=== PATIENT | male | born 1985 | race Hispanic/Latino ===

== ENCOUNTER 2018-05-13 02:47 | Emergency (ER) | payer OTHER ==
[2018-05-13 03:01] VITALS: O2SAT 98
[2018-05-13] MEDS ORDERED: Dexamethasone 10 MG in Sodium Chloride 0.9% 50 ML IVPB STA (04:25)
[2018-05-13 04:58] LABS: BASO % 0.2 % (0.0-2.0); EOS % 0.4 % (0.0-4.0); LYMPH # 1.4 K/uL (1.0-4.3); LYMPH % 18.8 % (20.0-40.0); MEAN CELL VOLUME 95.4 fl (80.0-94.0); MEAN CORPUSCULAR HEMOGLOBIN 32.9 pg (27.0-31.0); MEAN CORPUSCULAR HGB CONC 34.4 g/dL (33.0-37.0); MEAN PLATELET VOLUME 8.1 fl (7.2-11.7); MONO # 0.5 K/uL (0.0-0.8); MONO % 6.2 % (0.0-10.0); NEUT # 5.7 K/uL (1.8-7.0); NEUT % 74.4 % (50.0-75.0); RBC 4.26 Mil/uL (4.40-5.90); RED CELL DISTRIBUTION WIDTH 13.8 % (11.5-14.5); WHITE BLOOD COUNT 7.7 K/uL (4.8-10.8)
[2018-05-13] MEDS ORDERED: CEFTRIAXONE IVPB STA (04:58)
[2018-05-13] MEDS ORDERED: PED IVPB STA (04:58)
[2018-05-13 05:09] LABS: ALB/GLOB RATIO 1.4 (1.0-2.1); ALBUMIN 4.4 g/dL (3.5-5.0); ALT/SGPT 26 U/L (21-72); AST/SGOT 17 U/L (17-59); BLOOD UREA NITROGEN 20 mg/dl (9-20); CALCIUM 9.7 mg/dL (8.4-10.2); GFR NON-AFRICAN AMERICAN > 60
[2018-05-13] MEDS ORDERED: cefTRIAXone (Rocephin) 250 mg Inj IM STA (05:25)
[2018-05-13] MEDS ORDERED: cefTRIAXone (Rocephin) 250 mg Inj ONE (05:31)
--- NOTE | 2018-05-13 05:36 | ED PDOC ---
HPI: CCC, URI, Sore Throat Time Seen by Provider: 05/13/18 03:22 Chief Complaint (Nursing): Cough, Cold, Congestion History Per: Patient Additional Complaint(s): Pt. states for the past 6 weeks he's had a sore throat associated with mild nasal congestion. Pt. is concerned he may have contracted gonorrohea/chlamydia via oral sex. States he did give oral sex just prior to the onset of symptoms. Denies fever, rash, cough, abdominal pain, SOB, throat swelling. Pt. states he does have a hx of urethritis. Denies dysuria, penile discharge. Past Medical History Reviewed: Historical Data, Nursing Documentation, Vital Signs Vital Signs: Last Vital Signs Temp 97.6 F 05/13/18 02:58 Pulse 67 05/13/18 02:58 Resp 15 05/13/18 02:58 BP 123/80 05/13/18 02:58 Pulse Ox 98 05/13/18 02:58 - Medical History PMH: Bipolar Disorder - Family History Family History: States: No Known Family Hx - Allergies Allergies/Adverse Reactions: Allergies Allergy/AdvReac Type Severity Reaction Status Date / Time No Known Allergies Allergy Verified 05/13/18 03:01 Review of Systems ROS Statement: Except As Marked, All Systems Reviewed And Found Negative ENT: Positive for: Throat Pain Physical Exam - Physical Exam Appears: Positive for: Well, Non-toxic, No Acute Distress Skin: Positive for: Normal Color, Warm. Negative for: Rash Eye Exam: Positive for: Normal appearance ENT: Positive for: TM Is/Are (non-erythematous, non-bulging b/l), Pharyngeal Erythema. Negative for: Tonsillar Exudate, Tonsillar Swelling Neck: Positive for: Normal, Painless ROM Gastrointestinal/Abdominal: Positive for: Normal Exam, Soft. Negative for: Tenderness, Organomegaly Neurologic/Psych: Positive for: Alert, Oriented (x3) - Laboratory Results Result Diagrams: 05/13/18 04:53 05/13/18 04:53 - ECG O2 Sat by Pulse Oximetry: 98 - Progress ED Course And Treament: Labs, decadron 10mg IV ordered. Pt. requesting to be treated empirically for GC/Chlamydia. Disposition - Clinical Impression Clinical Impression: Odynophagia - Patient ED Disposition Is Patient to be Admitted: No - Disposition Referrals: [facility] Krysta Dhruv [Outside] Disposition: Routine/Home Disposition Time: 05:28 Condition: STABLE Additional Instructions: HÉCTOR OSCAR, thank you for letting us take care of you today. Your provider was Rad Lugo MD and you were treated for CONGESTION. The emergency medical care you received today was directed at your acute symptoms. If you were prescribed any medication, please fill it and take as directed. It may take several days for your symptoms to resolve. Return to the Emergency Department if your symptoms worsen, do not improve, or if you have any other problems. Please contact your doctor or call one of the physicians/clinics you have been referred to that are listed on the Patient Visit Information form that is included in your discharge packet. Bring any paperwork you were given at discharge with you along with any medications you are taking to your follow up v isit. Our treatment cannot replace ongoing medical care by a primary care provider outside of the emergency department. Thank you for allowing the [facility] team to be part of your care today. If you had an X-Ray or CT scan: A Radiologist will review the ED reading if any change in treatment is needed we will contact you. If you had a blood, urine, or wound culture: It will take several days for the results, if any change in treatment is needed we will contact you. If you had an STI test: It will take 48 hours for the results. Please call after 1 week if you have not heard back. Instructions: Sore Throat, Adult (DC) Forms: [employer] (Turkish)
[2018-05-13 06:18] VITALS: BP 113/64; PULSE 71; RESP 16; TEMP 98
== END 2018-05-13 06:17 | disposition home or self-care (01) ==
LOC: H.ER 02:47
DX: R10.13 Epigastric pain (principal); F31.9 Bipolar disorder, unspecified; N34.2 Other urethritis
CPT/HCPCS: 80053; 85025; 86308; 86664; 86665; 87040; 87070; 87430; 87491; 87591; 96372; 96374; 99283; J0696; J1100

== ENCOUNTER 2018-05-18 07:54 | Inpatient (IN) | payer OTHER ==
[2018-05-18 08:08] VITALS: O2SAT 98
--- NOTE | 2018-05-18 09:22 | ED PDOC ---
HPI: Psych/Substance Abuse Time Seen by Provider: 05/18/18 08:31 Chief Complaint (Nursing): Psychiatric Evaluation Chief Complaint (Provider): Psychiatric Evaluation History Per: Patient History/Exam Limitations: no limitations Suicide/Self Injury Attempted (Context): Other (Fall of a bridge) Associated Symptoms: Depression, Suicidal Thoughts, Suicidal Plan Additional Complaint(s): 32 years old male with history of bipolar disorder brought to ER by police for psychiatric evaluation after an anonymous person called PD for knowing that patient was planning on suicide. Patient admits having suicidal thoughts for about 6 weeks and has been planing for the past three days to go to [place] and throw himself off a bridge. He reports he has been searching and found that [place] bridges do not have guards, which is why he wanted to go there. Patient state his life has been in a difficult situation that made him suicidal. He denies any headaches, pain, chills or fever, cough or previous attempt to suicide. PMD: Sanchez Lowe Past Medical History Reviewed: Historical Data, Nursing Documentation, Vital Signs Vital Signs: Last Vital Signs Temp 98.1 F 05/18/18 08:04 Pulse 71 05/18/18 08:04 Resp 16 05/18/18 08:04 BP 131/76 05/18/18 08:04 Pulse Ox 98 05/18/18 08:04 - Medical History PMH: Bipolar Disorder - Surgical History Surgical History: No Surg Hx - Family History Family History: States: Unknown Family Hx - Social History Current smoker - smoking cessation education provided: No Alcohol: None Drugs: Denies - Home Medications Home Medications: Ambulatory Orders Medication Instructions Recorded Lurasidone HCl [Latuda] 120 mg PO DAILY 05/18/18 Vilazodone HCl [Viibryd] 20 mg PO DAILY 05/18/18 - Allergies Allergies/Adverse Reactions: Allergies Allergy/AdvReac Type Severity Reaction Status Date / Time No Known Allergies Allergy Verified 05/13/18 03:01 Review of Systems ROS Statement: Except As Marked, All Systems Reviewed And Found Negative Constitutional: Negative for: Fever, Chills Respiratory: Negative for: Cough Neurological: Negative for: Headache Psych: Positive for: Suicidal ideation (and plan) Physical Exam - Reviewed Nursing Documentation Reviewed: Yes Vital Signs Reviewed: Yes - Physical Exam Appears: Positive for: Non-toxic, No Acute Distress Head Exam: Positive for: ATRAUMATIC, NORMOCEPHALIC Skin: Positive for: Normal Color, Warm, Dry Eye Exam: Positive for: Normal appearance, EOMI, PERRL ENT: Positive for: Normal ENT Inspection Neck: Positive for: Supple Cardiovascular/Chest: Positive for: Regular Rate, Rhythm. Negative for: Murmur Respiratory: Positive for: Normal Breath Sounds. Negative for: Respiratory Distress Gastrointestinal/Abdominal: Positive for: Normal Exam, Soft Extremity: Positive for: Normal ROM. Negative for: Pedal Edema, Swelling Neurologic/Psych: Positive for: Alert, Oriented (x3) - Laboratory Results Result Diagrams: 05/18/18 09:13 05/18/18 09:13 - ECG O2 Sat by Pulse Oximetry: 98 (RA) Pulse Ox Interpretation: Normal Medical Decision Making Medical Decision Making: Time: 847 Initial Impression: Initial Plan: --Alcohol serum --CMP --Urine drug screen --Crisis evaluation --CBC --1:1 Observation --Urinalysis ----- Scribe Attestation: Documented by Piper Norris, acting as a scribe for Hannah Phipps MD. Provider Scribe Attestation: All medical record entries made by the Scribe were at my direction and perso callum dictated by me. I have reviewed the chart and agree that the record accurately reflects my personal performance of the history, physical exam, medical decision making, and the department course for this patient. I have also personally directed, reviewed, and agree with the discharge instructions and disposition. Disposition - Clinical Impression Clinical Impression: Suicidal behavior - Patient ED Disposition Is Patient to be Admitted: Yes Doctor Will See Patient In The: Hospital - Disposition Disposition: Transfer of Care Disposition Time: 10:19 Condition: GUARDED Forms: [employer] (Scottish) - Pt Status Changed To: Hospital Disposition Of: Inpatient - Admit Certification Admit to Inpatient:: After my assessment, the patient will require hospitalization for at least two midnights. This is because of the severity of symptoms shown, intensity of services needed, and/or the medical risk in this patient being treated as an outpatient. - POA Present On Arrival: None
[2018-05-18 09:42] LABS: BASO % 0.2 % (0.0-2.0); EOS % 0.3 % (0.0-4.0); HEMOGLOBIN 13.5 g/dL (12.0-18.0); LYMPH % 20.9 % (20.0-40.0); MEAN CELL VOLUME 95.8 fl (80.0-94.0); MEAN CORPUSCULAR HEMOGLOBIN 32.3 pg (27.0-31.0); MEAN CORPUSCULAR HGB CONC 33.7 g/dL (33.0-37.0); MEAN PLATELET VOLUME 8.8 fl (7.2-11.7); MONO # 0.2 K/uL (0.0-0.8); NEUT # 3.6 K/uL (1.8-7.0); NEUT % 73.6 % (50.0-75.0); NRBC % 0.1 % (0.0-0.0); RBC 4.16 Mil/uL (4.40-5.90); RED CELL DISTRIBUTION WIDTH 13.9 % (11.5-14.5); WHITE BLOOD COUNT 4.9 K/uL (4.8-10.8)
[2018-05-18 09:59] LABS: URINE BACTERIA RARE (<OCC); URINE BILIRUBIN NEGATIVE (NEGATIVE); URINE BLOOD NEGATIVE (NEGATIVE); URINE CLARITY CLOUDY (Clear); URINE COLOR YELLOW (YELLOW); URINE GLUCOSE (UA) NEG (Normal); URINE LEUKOCYTE ESTERASE NEG Leu/uL (Negative); URINE PROTEIN NEGATIVE (NEGATIVE)
[2018-05-18 09:59] LABS: ALB/GLOB RATIO 1.3 (1.0-2.1); ALT/SGPT 26 U/L (21-72); AST/SGOT 16 U/L (17-59); BLOOD UREA NITROGEN 24 mg/dl (9-20); CALCIUM 9.7 mg/dL (8.4-10.2); GFR NON-AFRICAN AMERICAN > 60
[2018-05-18 10:04] LABS: BARBITURATES, UR NEGATIVE (NEGATIVE); BENZODIAZEPINES, UR NEGATIVE (NEGATIVE); OPIATES, UR NEGATIVE (NEGATIVE); PHENCYCLIDINE, UR NEGATIVE (NEGATIVE)
[2018-05-18] MEDS ORDERED: Alum-Mag Hydrox-Simethicone Susp (30 mL) PO PRN (14:50)
[2018-05-18] MEDS ORDERED: DiphenhydrAMINE 50 mg/ml Inj IM PRN (14:50)
--- NOTE | 2018-05-18 15:17 | PCM.BM ---
Addendum entered and electronically signed by Nikki Talavera MSW 05/28/18 15:23: Treatment Plan Review - Problem Suicidal Ideation Time Initiated: 15:10 Hopelessness/Helplessness Time Initiated: 15:26 - Discharge / Continuing Care Discharge to:: Home Behavioral Health Services: [facility] hospital (Patient attended tx team this morning to discuss progress on 3NP and discharge. Pt. presented with flat affect and fair eye contact. Pt. remained guarded but was cooperative and in good behavioral control. Insight into illness and need for tx remains limited. Pt. superficially receptive to feedback regarding effective coping skills and goal setting. Pt. denied SI/HI and was able to contract for safety. Pt. strongly encouraged to complete tx with [facility] as recommended by tx team. As per Dr. Rothman, pt. can contact Dr. Angel and Horace Aceves upon discharge to inquire if he is able to continue services with outpatient providers if he so chooses. Pt. expressed understanding of the above. ) Original Note: <Yomi Calzada - Last Filed: 05/18/18 15:25> Treatment Plan Problems - Problems identified on initial assessmt Suicidal Ideation Date Initiated: 05/18/18 Time Initiated: 15:10 Assessment reference: NA Status: Active Hopelessness/Helplessness Date Initiated: 05/18/18 Time Initiated: 15:26 Assessment reference: NA Status: Active Treatment assets and liabiliti Patient Assests: cooperative, ADL independent, physically healthy Patient Liabilities: financial problems, poor support system - Milieu Protocol Maintain good personal hygiene: daily Encourage regular showers, daily Remind patient to perform daily oral care, daily Assist patient to perform ADL's Conduct patient checks and document Observation sheet: Q15 minutes Maintain personal safety: every shift Educate patient to report safety concerns to staff, every shift Monitor environment for contraband/sharps Medication safety: Monitor for expected outcome, potential side effects: every shift, Assess barriers to learning: every shift, Assess readiness for medication education: every shift Family Contact Family involvement: Famliy/SO not involved Family contact: Patient declines to allow family contact at present <Kimberley Rothman - Last Filed: 05/21/18 15:35> - Diagnosis (1) Suicidal ideation Status: Acute Interventions: psychotherapy, pharmacotherapy 05/21/18 15:36 <Nikki Talavera - Last Filed: 05/23/18 16:02> Treatment assets and liabiliti Patient Assests: adapts well, cooperative, educated, self-reliant, ADL independent, physically healthy, good support system (limited), negotiates basic needs, good past tx response, cognitively intact Family Contact - Outside Agency Agency 1 Care involvment: Following patient during stay, Information-sharing Agency contact name: Horace Aceves(therapist) Agency contact number: ([phone]) Agency 2 Care involvment: Following patient during stay, Information-sharing Agency contact name: Dr. Angel Agency contact number: ([phone])([phone]) - Goals for Treatment Patient goals for treatment: Patient to continue stabilization on 3NP through medication management and group/supportive therapy to address sxs of depression, eliminate SI and improve insight. Patient to be encouraged to attend groups regularly to promote self-awareness,compliance, and improve insight, coping skills and self-esteem. Patient to be provided with referral for appropriate level of aftercare to reduce risk of future hospitalizations and ensure safety in the community. Discharge/Continuing Care - Education Needs Education Needs: Patient Medication, Patient Diagnosis/Disease Process, Patient Coping Skills, Patient Community resources, Patient Aftercare Safety Plan - Discharge Discharge Criteria: Tolerates medication w/o severe side effects, Free of Suicidal thoughts, Free of paranoid thoughts, Normal sleep pattern, Reduction of target symptoms Discharge to:: Home - Treatment Team Participation Patient/Family/SO Statement: 05/23/18 16:01 Patient was seen in tx team on 05/21 to discuss progress on 3NP and tx goals. Pt. presented depressed and irritable. Pt. minimizing precursors to hospitalization. Pt. perseverating on unemployment and possibility of future homelessness if stable employment isnt found. Pt. expressed plans to move to [place] with father in the upcoming weeks to be near family and find employment. Pt. vaguely denied SI, expressing Well, nothing has changed in my life since I arrived. Affect remained flat. Pt. socially withdrawn but visible on 3NP. Pt assured that outpatient mental health providers would be contacted. Medication management discussed at length. Pt. reported inability to note significant improvement in sxs, explaining The differences the medications make are pretty subtle so its hard to tell in here. Discussed with Family/SO: No Was Patient/Family/SO present at Treatment Team Meeting: Yes
[2018-05-18 16:37] VITALS: RESP 18
--- NOTE | 2018-05-18 16:42 | PCM.PSYCH ---
Initial Psychiatric Evaluation - Initial Psychiatric Evaluation Type of Admission: Voluntary Legal Status: Capacity Chief Complaint (in patient's own words): I have been frustrated I can't go on like this anymore History of Present Illness and Precipitating Events: pt is a 32ys old male with previous psychiatric diagnosis of bipolar disorder, brought to ER by police due to having suicidal ideation with paln to jump off the bridge ,pt diagnosed with bipolar disorder two years ago when he had his first manic episode,pt since then was fired from his job, has been unable to find a job in his field, reported almost exhausted his savings and terrified about being homeless, has no social support, pt has been seeing psychiatrist dr lay every two weeks, due to increased depression she had him on latuda recently increased to 120 mg and augmented with viibryd 20mg pt continued to be depressed on day of evaluation, he reported to therapist he plans to fly to [place] to jump off the bridge on the unit pt guarded, paranoid appeared internally preoccupied, continues to have passive suicidal ideation wishing he was , denied perceptual disturbances, denied homicidal ideation collateral information/ Horace Aceves, therapist for collateral information. Pt met with him at 4 PM last night for an individual session. Pt has a history of impulsive behavior where he would go to different states to find what he is seeking and then head back home. Pt disclosed having thoughts of jumping [place] the [place]. Pt informed him that it would be their last session. For the last two weeks, pt has been having suicidal thoughts. Pt is obsessed with the idea that he will be homeless, and will be destitute. Pt was let go from his previous employment due to having a manic episode. Current Medications: Active Medications Generic Name Dose Route Start Last Admin Trade Name Freq PRN Reason Stop Dose Admin Acetaminophen 650 mg 05/18/18 14:50 Tylenol 325mg Tab PO Q4 PRN Pain, moderate (4-7) Al Hydrox/Mg Hydrox/Simethicone 30 ml 05/18/18 14:50 Maalox Plus 30 Ml PO Q4 PRN Dyspepsia Diphenhydramine HCl 50 mg 05/18/18 14:50 Benadryl IM Q6 PRN Extrapyramidal S/S Unable PO Diphenhydramine HCl 50 mg 05/18/18 14:50 Benadryl PO Q6 PRN Extrapyramidal Symptoms Haloperidol 5 mg 05/18/18 14:50 Haldol PO Q6 PRN Agitation Haloperidol Lactate 5 mg 05/18/18 14:50 Haldol IM Q6 PRN Agitation, Unable to Take PO [place] Carbonate 300 mg 05/19/18 09:00 [place] Carbonate 300mg PO DAILY MARAL Lorazepam 2 mg 05/18/18 14:50 Ativan IM Q6 PRN Anxiety/Agitation,Unable PO Lorazepam 2 mg 05/18/18 14:50 Ativan PO Q6 PRN Anxiety/Agitation Magnesium Hydroxide 30 ml 05/18/18 14:50 Milk Of Magnesia PO HS PRN Constipation Trazodone HCl 50 mg 05/18/18 22:00 Desyrel PO HS MARAL Past Psychiatric History - Past Psychiatric History Explanation of prior treatment: no hx of previous psychiatric hospitalizations History of ETOH/Drug Use: denied Pertinent Medical Hx (Current Medical&Sleep Prob, Allergies): Allergies Allergy/AdvReac Type Severity Reaction Status Date / Time No Known Allergies Allergy Verified 05/13/18 03:01 Lurasidone HCl [Latuda] 120 mg PO DAILY 05/18/18 Vilazodone HCl [Viibryd] 20 mg PO DAILY 05/18/18 Mental Status Examination - Personal Presentation Personal Presentation: Looks stated age - Affect Affect: Constricted, Depressed - Motor Activity Motor Activity: Psychomotor Retardation - Reliability in Providing Information Reliability in Providing Information: Poor, due to alteration in thoughts, Poor, due to altered mood - Speech Speech: Relevant - Mood Mood: Depressed, Anxious - Formal Thought Process Formal Thought Process: Paranoia, Circumstantial - Obsessions/Compulsions Obsessions: No Compulsions: No - Cognitive Functions Orientation: Person, Place, Situation Judgement: Imparied, as evidence by: Poor judgement, Imparied, as evidence by: Lack of insight into illness - Risk Risk: Suicidal, Diminished functioning - Strength & Assets Inventory Strength & Assets Inventory: Life experience - Limitations Additional comments: poor social support DSM 5 DX - DSM 5 DSM 5 Diagnosis: bipolar I dsorder MRE depressed severe - Recommended/Plan of Treatment Treatment Recommendations and Plan of Treatment: start latuda 80mg daily start lithium 300mg and increase gradually monitor for psychopharmacological effect CBT group and supportive therapy
[2018-05-19 09:15] LABS: T4 6.66 ug/dl (5.5-11.0)
--- NOTE | 2018-05-19 13:00 | CP.PCM.CON ---
History of Present Illness - History of Present Illness History of Present Illness: 32 yo male with no significant PMH admitted to psyche unit because of suicidal ideation. Review of Systems - Review of Systems All systems: reviewed and no additional remarkable complaints except (aside from those mentioned above, 12 point system review were negative by me) Past Patient History - Tetanus Immunizations Tetanus Immunization: Unknown - Past Medical History & Family History Past Medical History?: No Past Family History: Reviewed and not pertinent - Past Social History Smoking Status: Never Smoked Chewing Tobacco Use: No Cigar Use: No Alcohol: None Drugs: Denies - CARDIAC Hx Cardiac Disorders: No - PULMONARY Hx Tuberculosis: No - NEUROLOGICAL HX Cerebrovascular Accident: No Hx Seizures: No - HEMATOLOGICAL/ONCOLOGICAL Hx Cancer: No Hx Human Immunodeficiency Virus (HIV): No - GENITOURINARY/GYNECOLOGICAL Hx Sexually Transmitted Disorders: No - PSYCHIATRIC Hx Bipolar Disorder: Yes Hx Schizophrenia: Yes Hx Substance Use: Yes (MJ) - SURGICAL HISTORY Other/Comment: throat surgery - ANESTHESIA Hx Anesthesia: Yes Meds Allergies/Adverse Reactions: Allergies Allergy/AdvReac Type Severity Reaction Status Date / Time No Known Allergies Allergy Verified 05/13/18 03:01 - Medications Medications: Current Medications Acetaminophen (Tylenol 325mg Tab) 650 mg PO Q4 PRN PRN Reason: Pain, moderate (4-7) Al Hydrox/Mg Hydrox/Simethicone (Maalox Plus 30 Ml) 30 ml PO Q4 PRN PRN Reason: Dyspepsia Diphenhydramine HCl (Benadryl) 50 mg IM Q6 PRN PRN Reason: Extrapyramidal S/S Unable PO Diphenhydramine HCl (Benadryl) 50 mg PO Q6 PRN PRN Reason: Extrapyramidal Symptoms Haloperidol (Haldol) 5 mg PO Q6 PRN PRN Reason: Agitation Haloperidol Lactate (Haldol) 5 mg IM Q6 PRN PRN Reason: Agitation, Unable to Take PO Home Med (Lurasidone Hcl [Latuda]) 80 mg PO DAILY MARAL Last Admin: 05/19/18 09:15 Dose: Not Given [place] Carbonate ([place] Carbonate 300mg) 300 mg PO DAILY MARAL Last Admin: 05/19/18 09:13 Dose: 300 mg Lorazepam (Ativan) 2 mg IM Q6 PRN PRN Reason: Anxiety/Agitation,Unable PO Lorazepam (Ativan) 2 mg PO Q6 PRN PRN Reason: Anxiety/Agitation Magnesium Hydroxide (Milk Of Magnesia) 30 ml PO HS PRN PRN Reason: Constipation Trazodone HCl (Desyrel) 50 mg PO HS [facility] Last Admin: 05/18/18 21:31 Dose: 50 mg Physical Exam - Constitutional Appears: No Acute Distress - Head Exam Head Exam: ATRAUMATIC - Eye Exam Eye Exam: absent: Scleral icterus - ENT Exam ENT Exam: Mucous Membranes Moist - Neck Exam Neck exam: Negative for: Meningismus - Respiratory Exam Respiratory Exam: absent: Rales, Rhonchi, Wheezes, Respiratory Distress - Cardiovascular Exam Cardiovascular Exam: REGULAR RHYTHM, +S1, +S2 - GI/Abdominal Exam GI & Abdominal Exam: Soft. absent: Tenderness - Rectal Exam Rectal Exam: Deferred - Extremities Exam Extremities exam: Negative for: calf tenderness, pedal edema - Back Exam Back exam: NORMAL INSPECTION - Neurological Exam Neurological exam: Alert, Oriented x3 - Psychiatric Exam Psychiatric exam: Normal Affect - Skin Skin Exam: Dry, Intact Results - Vital Signs Recent Vital Signs: Last Vital Signs Temp 98 F 05/19/18 09:33 Pulse 70 05/19/18 09:33 Resp 18 05/19/18 09:33 BP 120/74 05/19/18 09:33 Pulse Ox 98 05/18/18 10:19 - Labs Result Diagrams: 05/18/18 09:13 05/18/18 09:13 Labs: Laboratory Results - last 24 hr 05/19/18 08:40 Triglycerides 138 Cholesterol 128 LDL Cholesterol Direct 65 HDL Cholesterol 34 Thyroxine (T4) 6.66 TSH 3rd Generation 1.29 Assessment & Plan (1) Suicidal ideation Status: Acute Comment: psyche is managing
--- NOTE | 2018-05-19 17:24 | PCM.PYCHPN ---
Psychiatric Progress Note - Psychiatric Progress Note Patient seen today, length of contact: chart reviewed case discussed with team Patient Chief Complaint: was feeling hyper racing thoughts feeling a little calmer requests to take latuda at hs, staff report pt respectfully declined am dose of latuda Problems Identified/Issues Discussed: alteration in mood Medical Problems: per chart Diagnostic Results: per psychiatry per medicine per nursing per social work per recreational therapy DSM 5 Symptoms Update: some improvement mood Medication Change: Yes (latuda 80mg po hs) Medical Record Reviewed: Yes Consults ordered or reviewed: pt seen by hospitalist Mental Status Examination - Cognitive Function Orientation: Person, Place, Situation Attention: WNL Concentration: WNL Association: WNL Fund of Knowledge: [facility] Decription of patient's judgement and insights: impaired - Mood Mood: Depressed, Anxious - Affect Affect: Constricted, Depressed - Formal Thought Process Formal Thought Process: Paranoia, Circumstantial - Homicidal Ideation Homicidal Ideation: No Goal/Treatment Plan - Goal/Treatment Plan Progress Toward Problem(s) and Goals/Treatment Plan: inpt milieu adjust meds per clinical status change latuda to hs per pt requestion discharge planning in progress Estimated Date of D/C: 05/23/18 - Smoking Cessation Smoking Cessation Initiated: No Reason for not providing: pt defers
[2018-05-19] MEDS: Magnesium Hydroxide Susp 30 ml UD PO PRN (21:05)
[2018-05-19] MEDS: LATUDA 40 MG PO SCH (21:05)
[2018-05-20] MEDS ORDERED: Patient's Own Med (Vilazodone Hcl [Viibryd] 20 mg) PO SCH (09:00)
--- NOTE | 2018-05-20 19:30 | PCM.PYCHPN ---
Psychiatric Progress Note - Psychiatric Progress Note Patient seen today, length of contact: chart reviewed case discussed with team Patient Chief Complaint: feeling calmer, slept better, taking rx, seen about unit, denies side effects rx. was able to take bath today change clothes reported as positive. Problems Identified/Issues Discussed: alteration in mood Medical Problems: per chart Diagnostic Results: per psychiatry per medicine per nursing per social work per recreational therapy DSM 5 Symptoms Update: improving mood Medication Change: No Medical Record Reviewed: Yes Consults ordered or reviewed: seen by hospitalist Mental Status Examination - Cognitive Function Orientation: Person, Place, Situation Attention: WNL Concentration: WNL Association: [facility] Fund of Knowledge: [facility] Decription of patient's judgement and insights: impaired - Mood Mood: Depressed, Anxious - Affect Affect: Constricted, Depressed - Formal Thought Process Formal Thought Process: Paranoia, Circumstantial - Homicidal Ideation Homicidal Ideation: No Goal/Treatment Plan - Goal/Treatment Plan Progress Toward Problem(s) and Goals/Treatment Plan: inpt milieu adjust meds per clinical status vital signs and clinical observation per protocol and per status discharge planning in progress Estimated Date of D/C: 05/23/18 - Smoking Cessation Smoking Cessation Initiated: No
[2018-05-20] MEDS: LATUDA 40 MG PO SCH (21:11)
[2018-05-20] MEDS: Magnesium Hydroxide Susp 30 ml UD PO PRN (21:13)
--- NOTE | 2018-05-21 15:45 | PCM.PYCHPN ---
Psychiatric Progress Note - Psychiatric Progress Note Patient seen today, length of contact: chart reviewed case discussed with team Patient Chief Complaint: I have my fahter helping me with logistics Problems Identified/Issues Discussed: pt evaluated with treatment team, less irritable, but continues to be guarded and evasive, stated feeling better as he has some support from his father so he is currently not worried about being homeless , pt continues to minimize his suicidal thoughts, requesting to be discharged, discussed with pt increasing dose of lithum as adjuvant to Latuda, also discussed the need to get collateral information from psychiatrist therapist and family encouraged pt to participate in groups, pt continues to appear internally preoccupied with thought blocking, denied any current perceptual disturbances denied thoughts of self harm, no reported side effects of lithium Medical Problems: no hx of previous psychiatric hospitalizations DSM 5 Symptoms Update: bipolar I disorder depressed Medication Change: Yes (increase lithium) Medical Record Reviewed: Yes Mental Status Examination - Cognitive Function Orientation: Person, Place, Situation Attention: WNL Concentration: WNL Association: WNL Fund of Knowledge: WNL - Mood Mood: Depressed, Anxious - Affect Affect: Constricted, Depressed - Speech Speech: Soft - Formal Thought Process Formal Thought Process: Paranoia, Circumstantial - Suicidal Ideation Suicidal Ideation: No - Homicidal Ideation Homicidal Ideation: No Goal/Treatment Plan - Goal/Treatment Plan Need for Continued Stay: Remain at risks for inpatient hospitalization, Severe depression anxiety, Discharge may exacerbated symptoms Progress Toward Problem(s) and Goals/Treatment Plan: latuda 80mg daily increase lithium 300mg bid monitor for psychopharmacological effect and side effect profile awaiting call from private psychiatrist Dr Angel CBT group and supportive therapy Estimated Date of D/C: 05/23/18
[2018-05-21] MEDS: LATUDA 40 MG PO SCH (21:46)
--- NOTE | 2018-05-22 15:00 | PCM.PYCHPN ---
Psychiatric Progress Note - Psychiatric Progress Note Patient seen today, length of contact: chart reviewed case discussed with team Patient Chief Complaint: I am trying to find a way out from my depression Problems Identified/Issues Discussed: pt evaluated continues to be guarded, needs a lot of encouragement to discuss his illness with the undersigned, reported feeling less edgy and calmer, stated he is no longer contemplating suicide as an option to solve his problems, feeling less depressed with the fact that he was offered by his father to stay with him which makes him less worried about being homeless, no reported side effects with the increase in lithium, treatment plan was discussed with pt therapist upon his consent who indicated increased impulsivity in past few months with increased unplanned trips , but confirmed that no previous suicidal attempts pt at current time denied suicidal or homicidal ideation denied perceptual disturbances, Medical Problems: no hx of previous psychiatric hospitalizations DSM 5 Symptoms Update: bipolar I disorder MRE depressed severe Medication Change: No (increase lithium) Medical Record Reviewed: Yes Mental Status Examination - Cognitive Function Orientation: Person, Place, Situation Attention: WNL Concentration: WNL Association: WNL Fund of Knowledge: WNL - Mood Mood: Depressed, Anxious - Affect Affect: Constricted, Depressed - Speech Speech: Soft - Formal Thought Process Formal Thought Process: Paranoia, Circumstantial - Suicidal Ideation Suicidal Ideation: No - Homicidal Ideation Homicidal Ideation: No Goal/Treatment Plan - Goal/Treatment Plan Need for Continued Stay: Remain at risks for inpatient hospitalization, Severe depression anxiety, Discharge may exacerbated symptoms Progress Toward Problem(s) and Goals/Treatment Plan: latuda 80mg daily lithium 300mg bid monitor for psychopharmacological effect and side effect profile awaiting call from private psychiatrist Dr Angel CBT group and supportive therapy Estimated Date of D/C: 05/23/18
[2018-05-22] MEDS: LATUDA 40 MG PO SCH (21:08)
--- NOTE | 2018-05-23 16:18 | PCM.PYCHPN ---
Psychiatric Progress Note - Psychiatric Progress Note Patient seen today, length of contact: chart reviewed case discussed with team Patient Chief Complaint: I feel I have a lot of tangled problems on the outside that is hard to solve Problems Identified/Issues Discussed: pt evaluated , and treatment plan discussed with private psychiatrist Dr torres, agreed with adding lithum for augmentation, reported that pt has been more stable when on the lithium pt on evaluation, affect is less constricted, more interactive with undersigned, continues to feel overwhelmed due to current financial difficulties, CBT provided discussed with pt possible healthy coping skills with current stressors, discussed starting partial hospital program on discharge for more intensive outpatient therapy, also discussed increasing dose of lithium, pt denied any current side effects pt at current time denied suicidal or homicidal ideation denied perceptual disturbances, Medical Problems: no hx of previous psychiatric hospitalizations DSM 5 Symptoms Update: bipolar I disorder MRE manic severe Medication Change: Yes (increase lithium) Medical Record Reviewed: Yes Mental Status Examination - Cognitive Function Orientation: Person, Place, Situation Attention: WNL Concentration: WNL Association: WNL Fund of Knowledge: WNL - Mood Mood: Depressed, Anxious - Affect Affect: Constricted, Depressed - Speech Speech: Soft - Formal Thought Process Formal Thought Process: Circumstantial - Suicidal Ideation Suicidal Ideation: No - Homicidal Ideation Homicidal Ideation: No Goal/Treatment Plan - Goal/Treatment Plan Need for Continued Stay: Remain at risks for inpatient hospitalization, Severe depression anxiety, Discharge may exacerbated symptoms Progress Toward Problem(s) and Goals/Treatment Plan: latuda 80mg daily increase lithium 300mg daily and 600 mg qhs monitor for psychopharmacological effect and side effect profile CBT group and supportive therapy social human services assistants to initiate referral to [facility] on discharge Estimated Date of D/C: 05/25/18
[2018-05-23] MEDS: LATUDA 40 MG PO SCH (21:04)
--- NOTE | 2018-05-24 17:15 | PCM.PYCHPN ---
Psychiatric Progress Note - Psychiatric Progress Note Patient seen today, length of contact: chart reviewed case discussed with team Patient Chief Complaint: I do not see a way out of my financial problems Problems Identified/Issues Discussed: pt on evaluation, speech more productive ,attending groups, interactive with other patients, continues to be guarded when talking about his problems, at times appears paranoid , continues to report feeling as there is no solution for his financial problems , CBT provided discussed starting partial hospital program on discharge for more intensive outpatient therapy, also discussed increasing dose of lithium, pt denied any current side effects pt at current time denied suicidal or homicidal ideation denied perceptual disturbances, Medical Problems: no hx of previous psychiatric hospitalizations DSM 5 Symptoms Update: bipolar I disorder MRE depressed severe Medication Change: Yes (increase lithium) Medical Record Reviewed: Yes Mental Status Examination - Cognitive Function Orientation: Person, Place, Situation Attention: WNL Concentration: WNL Association: WNL Fund of Knowledge: WNL - Mood Mood: Depressed, Anxious - Affect Affect: Constricted, Depressed - Speech Speech: Soft - Formal Thought Process Formal Thought Process: Circumstantial - Suicidal Ideation Suicidal Ideation: No - Homicidal Ideation Homicidal Ideation: No Goal/Treatment Plan - Goal/Treatment Plan Need for Continued Stay: Remain at risks for inpatient hospitalization, Severe depression anxiety, Discharge may exacerbated symptoms Progress Toward Problem(s) and Goals/Treatment Plan: latuda 80mg daily increase lithium 300mg daily and 600 mg qhs monitor for psychopharmacological effect and side effect profile CBT group and supportive therapy social work therapist to initiate referral to [facility] on discharge Estimated Date of D/C: 05/28/18
[2018-05-24] MEDS: LATUDA 40 MG PO SCH (21:04)
--- NOTE | 2018-05-25 14:34 | PCM.PYCHPN ---
Psychiatric Progress Note - Psychiatric Progress Note Patient seen today, length of contact: chart reviewed case discussed with team Patient Chief Complaint: I am trying to reflect on my problems and see how to get out of it Problems Identified/Issues Discussed: pt on evaluation, presenting with brighter affect, less irritable , less anxious , observed attending groups, interacting with other patients, no reported changes in sleep or appetite, , speech more productive ,noted to be responding to increasing the dose of lithium, less guarded, discussed increasing dose of latuda nad following up on lithium level pt at current time denied suicidal or homicidal ideation denied perceptual disturbances, Medical Problems: no hx of previous psychiatric hospitalizations DSM 5 Symptoms Update: bipolar i disorder mre mixed severe Medication Change: Yes (increase lithium) Medical Record Reviewed: Yes Mental Status Examination - Cognitive Function Orientation: Person, Place, Situation Attention: WNL Concentration: WNL Association: WNL Fund of Knowledge: WNL - Mood Mood: Depressed, Anxious - Affect Affect: Constricted, Depressed - Speech Speech: Appropriate, Soft - Formal Thought Process Formal Thought Process: No Impairment Psychotic Thoughts and Behaviors: pt denied psychotic symptoms, non elicited - Suicidal Ideation Suicidal Ideation: No - Homicidal Ideation Homicidal Ideation: No Goal/Treatment Plan - Goal/Treatment Plan Need for Continued Stay: Remain at risks for inpatient hospitalization, Severe depression anxiety, Discharge may exacerbated symptoms Progress Toward Problem(s) and Goals/Treatment Plan: increase latuda 120mg daily increase lithium 300mg daily and 900 mg qhs monitor for psychopharmacological effect and side effect profile CBT group and supportive therapy director of social work to initiate referral to [facility] on discharge Estimated Date of D/C: 05/28/18
[2018-05-25] MEDS: LATUDA 40 MG PO SCH (21:03)
--- NOTE | 2018-05-26 12:20 | PCM.PYCHPN ---
Psychiatric Progress Note - Psychiatric Progress Note Patient seen today, length of contact: chart reviewed case discussed with team Patient Chief Complaint: I felt overwhelmed because everything seemed tangled Problems Identified/Issues Discussed: pt evaluated, long CBT session provided, discussed with pt negative automatic thoughts, need to challenge these thoughts, also discussed importance to continue with therapy on discharge, discussed with pt the possible hurdles he expects to face upon discharge and the possible ways to handle them pt reported more stable mood with the increase in lithium, denied any current thoughts of self harm discussed with pt importance of followup with partial hospital on discharge as transition from inpatient , treatment plan discussed with pt 's father upon pt consent who provided intense social and financial support to patient in addition to his sister pt at current time denied suicidal or homicidal ideation denied perceptual disturbances,no reported side effects of medications Medical Problems: no hx of previous psychiatric hospitalizations DSM 5 Symptoms Update: bipolar disorder depressed Medication Change: No Medical Record Reviewed: Yes Mental Status Examination - Cognitive Function Orientation: Person, Place, Situation Attention: WNL Concentration: WNL Association: WNL Fund of Knowledge: WNL - Mood Mood: Depressed, Anxious - Affect Affect: Constricted, Depressed - Speech Speech: Appropriate, Soft - Formal Thought Process Formal Thought Process: No Impairment Psychotic Thoughts and Behaviors: pt denied psychotic symptoms, non elicited - Suicidal Ideation Suicidal Ideation: No - Homicidal Ideation Homicidal Ideation: No Goal/Treatment Plan - Goal/Treatment Plan Need for Continued Stay: Remain at risks for inpatient hospitalization, Severe depression anxiety, Discharge may exacerbated symptoms Progress Toward Problem(s) and Goals/Treatment Plan: increase latuda 120mg daily lithium 300mg daily and 900 mg qhs , follow up on lithium level tomorrow AM monitor for psychopharmacological effect and side effect profile CBT group and supportive therapy social security benefits interviewer to initiate referral to [facility] on discharge Estimated Date of D/C: 05/28/18
[2018-05-26] MEDS: LATUDA 40 MG PO SCH (21:11)
--- NOTE | 2018-05-27 11:02 | PCM.PYCHPN ---
Psychiatric Progress Note - Psychiatric Progress Note Patient seen today, length of contact: chart reviewed case discussed with team Patient Chief Complaint: I have a list of my problems, nothing is different Problems Identified/Issues Discussed: pt evaluated, as agreed yesterday, pt prepared a list of his forseen problems on discharge, attempted CBT with patient with problem solving , pt however continues to be very pessimistic, unable to see any solution for his problems ,pt today presenting with dysphoric affect reported feeling anxious about facing the problems on discharge yet continues to request to be discharged stated he would not sign 48 hour notice as he understands that he could end up as involuntary patient , when asked about suicide pt reported as it may still seem an option he pt is still guarded and depressed , evasive when asked about suicidal thoughts Medical Problems: no hx of previous psychiatric hospitalizations DSM 5 Symptoms Update: bipolar I diorder MRE depressed severe Medication Change: No Medical Record Reviewed: Yes Mental Status Examination - Cognitive Function Orientation: Person, Place, Situation Attention: WNL Concentration: WNL Association: WN Fund of Knowledge: WNL - Mood Mood: Depressed, Anxious - Affect Affect: Constricted, Depressed - Speech Speech: Appropriate, Soft - Formal Thought Process Formal Thought Process: No Impairment Psychotic Thoughts and Behaviors: pt denied psychotic symptoms, non elicited - Suicidal Ideation Suicidal Ideation: No - Homicidal Ideation Homicidal Ideation: No Goal/Treatment Plan - Goal/Treatment Plan Need for Continued Stay: Remain at risks for inpatient hospitalization, Severe depression anxiety, Discharge may exacerbated symptoms Progress Toward Problem(s) and Goals/Treatment Plan: pt continues to be vague and evasive when questioned about suicidal thoughts, pt also requesting discharge , continues to be high suicide risk , will be screened for involuntary admission , for further stabilization continue with latuda 120mg daily lithium 300mg daily and 900 mg qhs , Estimated Date of D/C: 05/28/18
[2018-05-27 13:57] LABS: BASO % 0.5 % (0.0-2.0); EOS % 0.5 % (0.0-4.0); HEMOGLOBIN 13.8 g/dL (12.0-18.0); LYMPH # 1.4 K/uL (1.0-4.3); LYMPH % 17.2 % (20.0-40.0); MEAN CELL VOLUME 96.6 fl (80.0-94.0); MEAN CORPUSCULAR HEMOGLOBIN 32.6 pg (27.0-31.0); MEAN CORPUSCULAR HGB CONC 33.7 g/dL (33.0-37.0); MEAN PLATELET VOLUME 7.8 fl (7.2-11.7); MONO # 0.4 K/uL (0.0-0.8); MONO % 4.8 % (0.0-10.0); NEUT # 6.3 K/uL (1.8-7.0); RBC 4.23 Mil/uL (4.40-5.90); RED CELL DISTRIBUTION WIDTH 13.7 % (11.5-14.5); WHITE BLOOD COUNT 8.1 K/uL (4.8-10.8)
[2018-05-27 14:14] LABS: ALB/GLOB RATIO 1.3 (1.0-2.1); ALBUMIN 4.2 g/dL (3.5-5.0); ALT/SGPT 25 U/L (21-72); AST/SGOT 18 U/L (17-59); BLOOD UREA NITROGEN 17 mg/dl (9-20); CALCIUM 9.5 mg/dL (8.4-10.2); GFR NON-AFRICAN AMERICAN > 60
--- NOTE | 2018-05-27 18:22 | RAD ---
Date of service: 05/27/2018 PROCEDURE: CHEST RADIOGRAPH, 1 VIEW HISTORY: medical clearance COMPARISON: None available. FINDINGS: LUNGS: Clear. PLEURA: No pneumothorax or pleural fluid seen. CARDIOVASCULAR: Normal. OSSEOUS STRUCTURES: No significant abnormalities. VISUALIZED UPPER ABDOMEN: Normal. OTHER FINDINGS: None. IMPRESSION: No active disease.
[2018-05-27] MEDS: LATUDA 40 MG PO SCH (21:19)
[2018-05-27 23:25] LABS: SQUAMOUS EPITHIAL < 1 /hpf (0-5); URINE BILIRUBIN NEGATIVE (NEGATIVE); URINE BLOOD NEGATIVE (NEGATIVE); URINE CLARITY SLIGHTY-CLOUDY (Clear); URINE COLOR YELLOW (YELLOW); URINE GLUCOSE (UA) NEG (Normal); URINE LEUKOCYTE ESTERASE NEG Leu/uL (Negative); URINE PROTEIN NEGATIVE (NEGATIVE); URINE UROBILINOGEN 0.2-1.0 mg/dL (0.2-1.0)
[2018-05-28 09:07] VITALS: BP 112/60; PULSE 82; TEMP 97.3
== END 2018-05-28 11:45 | disposition home or self-care (01) | DRG 885 ==
LOC: H.ER 07:54 → H.ERHOLD 10:21 → H.PSYCH 12:53
PROVIDERS: ADMIT Psychiatry & Neurology Psychiatry; ATTEND Psychiatry & Neurology Psychiatry
PROC: GZHZZZZ Group Psychotherapy (ICD-10-PCS; principal; 2018-05-18)
PROC: GZ58ZZZ Individual Psychotherapy, Cognitive-Behavioral (ICD-10-PCS; 2018-05-18)
PROC: GZ56ZZZ Individual Psychotherapy, Supportive (ICD-10-PCS; 2018-05-18)
DX: F31.4 Bipolar disorder, current episode depressed, severe, without psychotic features (principal); R45.851 Suicidal ideations; Z56.0 Unemployment, unspecified